=== PATIENT | female | born 1990 | race Caucasian/White ===

== ENCOUNTER → 2017-03-05 | Outpatient (CLI) | payer OTHER ==
[2016-05-22 10:14] VITALS: BP 120/58
[~2017-03-05] MED LIST: KETO10TA PO; ONDA4TAB10 SL; PROM25TA10 PO
--- NOTE | 2017-03-05 12:56 | RAD ---
INDICATION: Vaginal bleeding. COMPARISON: None. TECHNIQUE: Grayscale and color ultrasound images uterus and adnexa. Transabdominal and transvaginal images obtained. FINDINGS: Uterus: 7.0 x 3.2 x 2.8 cm. Endometrial Stripe: 2.5 mm. Right Ovary: 2.7 x 2.4 x 1.6 cm. Flow Identified. Left Ovary: 3.0 x 1.7 x 1.4 cm. Flow Identified. Trace free fluid within physiologic range. IMPRESSION: 1. The endometrial stripe is not thickened. No evidence of retained products.
== END | disposition home or self-care (01) ==
LOC: US 11:56
PROVIDERS: ATTEND Obstetrics & Gynecology
CPT/HCPCS: 76830; 76856